=== PATIENT | male | born 1965 | race Caucasian/White ===

== ENCOUNTER 2025-06-17 12:42 | Outpatient (AMB) | payer OTHER, SELFPAY ==
--- NOTE | 2025-06-17 12:44 | MHC.OFFVIS ---
Intake Visit Reasons: F/U PD Allergies No Known Allergies Allergy (Verified 06/13/25 11:04) HPI Comments Details: 59 years old man with chronic depression with exposure to antipsychotic medicines and parkinsonism. He was doing okay. Mood was flexor. Sleep was okay. No significant change in his gait or any new symptom or tremor. [facility] Medical History (Updated 06/17/25 @ 12:46 by Jean Culver MD) Encephalopathy Hypertension Insomnia Parkinsonism Depression Review of Systems Const Details: Constitutional:?No fever, chills, fatigue, weight loss, or night sweats. HEENT:?No headache, vision changes, hearing loss, nasal congestion, sore throat. Neurological:?No dizziness, syncope, seizures, numbness, tingling, weakness, tremors, memory loss. Psychiatric:? Flat mood. Endocrine:?No heat/cold intolerance, polydipsia, polyuria, or hair/skin changes. Hematologic/Lymphatic:?No easy bruising, bleeding, or lymphadenopathy. Integumentary (Skin):?No rash, lesions, itching, or color changes. ? Physical Exam Neuro Other: Mental Status: Alert and oriented to person, place, and time. Normal attention. Normal spontaneous speech, fluency, and comprehension. Cranial Nerves: CN II: Visual bundy full to confrontation, visual acuity intact. CN III, IV, : Pupils equal, round, reactive to light and accommodation. Extraocular movements are normal. CN V: Facial sensation is normal. CN VII: Facial movements symmetrical. CN VIII: Hearing intact to bedside conversation is normal. CN IX, X: Palate elevates symmetrically. CN XI: Shoulder shrug and head turn symmetrical. CN XII: Tongue midline without atrophy or fasciculations. Extrapyramidal: Full facial expressions and blinking. No rigidity. Movements are appropriate with no tremor or abnormality. Speech: Normal; no dysarthria or tremor. Assessment & Plan Assessment & Plan (1) Parkinsonism: Code(s): G20.C - Parkinsonism, unspecified Category: Medical Qualifiers: Parkinsonism type: secondary Parkinsonism Secondary Parkinsonism type: neuroleptic-induced Qualified Code(s): G21.11 - Neuroleptic induced parkinsonism; T43.505A - Adverse effect of unspecified antipsychotics and neuroleptics, initial encounter Plan Impression: Mild parkinsonism with a exposure to neuroleptic type of medicines related to depression Recommendations: Benztropine 0.5 mg a day has been working well and was continued. Medications: New benztropine 0.5 mg PO DAILY 90 tabs 1RF Coding Level of Care Code Est Pt Level 4 (24854) Diagnoses Neuroleptic-induced parkinsonism G21.11; T43.505A Parkinsonism type: secondary Parkinsonism Secondary Parkinsonism type: neuroleptic-induced
--- OUTSIDE RECORDS SUMMARY | 2025-06-17 15:20 | XMS_ITS | Clinical Summary ---
Author Organization [address] [facility] Address [address] [place] [address] Phone Care Team Providers Care Gas Transfer Operator Name Role Phone Johann Oliver MD Primary Care Provider [phone] Allergies Active Allergy Reactions Criticality Noted Date Comments Bee Venom Protein (Honey Bee) Swelling Medium 2011 Medications ARIPiprazole (ABILIFY) 15 mg tablet Take 15 mg by mouth daily. 0 Active benztropine (COGENTIN) 0.5 mg tablet TAKE 1 TABLET BY MOUTH ONCE DAILY FOR 90 DAYS 2 Active lamoTRIgine (LaMICtal) 200 mg tablet TAKE 1 TABLET BY MOUTH ONCE DAILY WITH 225 MG TABLET FOR A TOTAL DAILY DOSE OF 250 MG 3 Active LORazepam (ATIVAN) 0.5 mg tablet as needed. 0 Active melatonin 3 mg tablet TAKE 1 TO 3 TABLETS BY MOUTH AT BEDTIME 3 Active sertraline (ZOLOFT) 100 mg tablet Take 100 mg by mouth daily. 0 Active traZODone (DESYREL) 150 mg tablet TAKE 1 TO 2 TABLETS BY MOUTH ONCE DAILY AT NIGHT 3 Active lamoTRIgine (LaMICtal) 25 mg tablet Take 1 tablet (25 mg total) by mouth 1 (one) time each day. With 200MG for total daily dose of 225 MG 4 Active levothyroxine (SYNTHROID, LEVOTHROID) 175 mcg tabletIndications: Postprocedural hypothyroidism Take 1 tablet by mouth once daily 30 tablet 5 5 Active amLODIPine (NORVASC) 10 mg tablet Take 1 tablet by mouth once daily 90 tablet 1 5 Active carvediloL (COREG) 12.5 mg tablet TAKE 1 TABLET BY MOUTH TWICE DAILY WITH MEALS 180 tablet 5 Active diclofenac (VOLTAREN) 1 % topical gel Apply 2 g topically 4 (four) times a day. 30 g 1 5 Active Active Problems Problem Noted Date Diagnosed Date HTN (hypertension) 07/10/2024 Overview (07/10/2024): Last Assessment & Plan: Patient's blood pressure is markedly elevated. This may be what caused the ST segment changes in recovery on his stress test. We will add amlodipine 2.5 mg a day to his carvedilol. Patient's been warned about lightheadedness and dizziness. May need additional adjustments to his therapy by his primary care physicians if his pressure remains elevated. Parkinson's disease with dys kinesia ([facility] V24, [facility] V28) 07/05/2024 Postoperative hypothyroidism 11/16/2022 Papillary thyroid carcinoma ([facility] V24, [facility]/ [facility] V28) 07/21/2022 Chest pain 09/11/2020 Overview (07/10/2024): Last Assessment & Plan: Patient with a somewhat atypical chest discomfort. Does have risk factors for coronary disease. We will send her for stress echocardiogram. Again I suspect the ST changes are secondary to hypertension. But he does have 3 out of 5 risk factors with hypertension hyperlipidemia and a family history of premature coronary disease. CKD (chronic kidney disease) stage 3, GFR 30-59 ml/min ([facility] V24, [facility] V28) 07/19/2020 Anxiety 07/17/2020 Major depression 11/20/2014 Overview (07/10/2024): Severe per his report Bilateral renal cysts 10/21/2013 Renal stone 10/21/2013 Diverticulosis 10/21/2013 Erectile dysfunction 09/05/2012 Overweight (BMI 25.0-29.9) 09/05/2012 Hyperlipidemia 08/08/2012 Encounters Date Type Department Care Team Description 06/05/2025 9:30 AM EDT Office Visit Adult Medicine [address] [phone] Johann Oliver MD Primary hypertension (Primary Dx); High cholesterol; Need for prophylactic vaccination and inoculation against influenza; Postoperative hypothyroidism; Papillary thyroid carcinoma ([facility] V24, [facility] V28); Parkinson's disease with dyskinesia, unspecified whether manifestations fluctuate (CMS/HCC V24, CMS/HCC V28); Pain in both feet 03/20/2025 10:28 AM EDT - 03/20/2025 11:59 PM EDT Hospital Encounter Radiology Department - [address] [phone] Cervical radiculopathy Discharge Disposition: Home or Self Care from Last 3 Months Immunizations Immunization Administration Dates Next Due Influenza Quadravalent, MDCK , 0.5ml, preservative free (Flucelvax) 6mo and older 05/18/2021 Influenza trivalent, 0.5mL, preservative free (Fluarix; FluLaval; Fluzone) ages 6mo and older (Afluria) 3 years and older 09/07/2022,06/27/2018,06/11/2016,2014,05/08/2013,09/05/2012 Influenza trivalent, MDCK, 0 .5mL, preservative free (Flucelvax) 6mo and older 06/05/2025 Tdap Tetanus diptheria acell ular pertussis (Boostrix; Adacel) 7yo and older 12/16/2016,09/05/2012 Surgical History Surgery Date Site/Laterality Comments CHOLECYSTECTOMY -2014 PROCEDURE: HISTORICAL CHOLECYSTECTOMY Medical History Medical History Date Comments HTN (hypertension) DX:HTN (hyper tension) Blurry vision, right eye DX:Blur ry vision, right eye Bilateral renal cysts 09/04/2013 DX:Bilater al renal cysts; COMMENT: benign appearing via CT 2013 Suicidal ideation 05/05/2014 DX:Suicidal id eation; COMMENT: adm into [facility] Anxiety DX:Anxiety Depression DX:Depression Major depression 11/20/2014 DX:Major depres yonny Papillary thyroid carcinoma (CMS/HCC V24, CMS/HCC V28) DX:Papillary thyroid carcino ma (HCC) Family History Medical History Relation Name Comments Depression Brother 1 Other: tobacco Brother 2 No Known Problems Daughter 1 No Known Problems Daughter 2 No Known Problems Daughter 3 No Known Problems Daughter 4 Other: s/p PPM Father Prostate cancer Father Stroke Father Other cancer Mother unsure of type Heart attack Paternal Grandfather Stroke Paternal Grandfather Breast cancer Paternal Grandmother Other cancer Paternal Grandmother bone Parkinson's Disease Paternal Grandmother Relation Name Status Comments Brother 1 Alive Brother 2 Alive Daughter 1 Alive Daughter 2 Alive Daughter 3 Alive Daughter 4 Alive Father Alive CVA age 60s, pr ostate cancer Maternal Grandfather Maternal Grandmother Mother cancer-type unk nown Paternal Grandfather [place]/CVA Paternal Grandmother Social History Tobacco Use Types Packs/Day Years Used Date Smoking Tobacco: Never Smokeless Tobacco: Never Alcohol Use Standard Drinks/Week Comments Not Asked 0 (1 standard drink = 0.6 oz pur e alcohol) Housing Instability Answer Date Recorde d Are you worried that in the next 2 months you may not have stable housing? No 11/20/2024 Food Access & Nutrition Answer Date Rec orded Do you have access to a vari ety of food including fruits and vegetables? Yes 11/20/2024 Health Literacy Answer Date Recorded How often do you need to hav e someone help you when you read instructions, pamphlets, or other written material from your doctor or pharmacy? Never 11/20/2024 Caregiver: How often do you need to have someone help you when you read instructions, pamphlets, or other written material from your doctor or pharmacy? Not on file 11/20/2024 Financial Risk Answer Date Recorded How hard is it for you to pa y for the very basics like food, housing, medical care, and air conditioning / heating? Not very hard 11/20/2024 Transportation Answer Date Recorded Has the lack of transportati on kept you from meetings, work, or from getting things needed for daily living? No Has the lack of transportati on kept you from medical appointments or from getting medications? No 11/20/2024 Social Isolation Answer Date Recorded How often do you feel lonely or isolated from th ose around you? Never 11/20/2024 Food Risk Answer Date Recorded Within the past 12 months we worried whether our food would run out before we got money to buy more. Never true 11/20/2024 Within the past 12 months th e food we bought just didn't last and we didn't have money to get more. Never true 11/20/2024 Dependent Care Answer Date Recorded Do you need help finding or paying for care for your loved ones. For example, early childhood specialist or elderly care for an older adult? No 11/20/2024 Education Answer Date Recorded Do you think completing more education or training, like finishing a GED, going to college, or learning a trade, would be helpful for you? No 11/20/2024 Employment and Income Answer Date Recor ded During the last four weeks, have you been actively looking for work? No 11/20/2024 Living Situation Answer Date Recorded What is your living situation? Unrecognized valu e 11/20/2024 Sex and Gender Information Value Date Recorded Sex Assigned at Not on file Legal Sex Male 9:52 AM EST Gender Identity Not on file Sexual Orientation Not on file Obstetrics History Last Filed Vital Signs Vital Sign Reading Time Taken Comments Blood Pressure 124/74 06/05/2025 9:14 AM EDT Pulse 72 06/05/2025 9:14 AM EDT Temperature 36.6 C (97.8 F) 06/05/2025 9:14 AM EDT Respiratory Rate 16 06/05/2025 9:14 AM EDT Oxygen Saturation 97% 06/05/2025 9:14 AM EDT Inhaled Oxygen Concentration - - Weight 81.2 kg (179 lb) 06/05/2025 9:14 AM EDT Height 167.6 cm (5' 6 ) 06/05/2025 9:14 AM EDT Body Mass Index 28.89 06/05/2025 9:14 AM EDT Plan of Treatment Upcoming Encounters Date Type Department Care Team (Late st Contact Info) Description 08/14/2025 11:00 AM EST Office Visit Endocrinology - [address] [phone] Valerie Dee MD [address] [place] [phone] 12/26/2025 9:30 AM EDT Office Visit Adult Medicine [facility] [address] [place] [address] Johann Oliver MD [address] [place] [address] Health Maintenance Due Date Last Done Comments Colorectal Cancer Screening: Colonoscopy 1967 Hepatitis B Vaccines (1 of 3 - 19+ 3-dose series) 1986 Pneumococcal Vaccine: 50+ Years (1 of 2 - PCV) 1986 Zoster Vaccines (1 of 2) 1986 COVID-19 Vaccine (3 - Moderna risk series) 01/28/2021 12/31/2020, 12/02/2020 HIV Screening 08/02/2022 Medicare Annual Wellness Visit 08/02/2022 Social Influencers of Health Screening 11/20/2025 11/20/2024 Hypertension/CHF/CAD Annual BMP Blood Test 03/02/2026 03/02/2025, 11/22/2024, 10/19/2023 DTaP,Tdap,and Td Vaccines (3 - Td or Tdap) 12/16/2026 12/16/2016, 09/05/2012 Cholesterol Screening (Lipid Panel) 11/22/2029 11/22/2024, 10/19/2023 RSV Immunization Adult Patients (1 - 1-dose 75+ series) 2042 Hepatitis C Screening Completed 11/16/2022 Depression Screening Completed 06/04/2025 Influenza Vaccine Discontinued 06/05/2025, , 05/18/2021, Additional history exists HIB Vaccines Aged Out No longer eligi ble based on patient's age to complete this topic HPV Vaccines Aged Out No longer eligi ble based on patient's age to complete this topic Hepatitis A Vaccines Aged Out No long er eligible based on patient's age to complete this topic IPV Vaccines Aged Out No longer eligi ble based on patient's age to complete this topic MMR Vaccines Aged Out No longer eligi ble based on patient's age to complete this topic Meningococcal ACWY Vaccine Aged Out N o longer eligible based on patient's age to complete this topic Meningococcal B Vaccine Aged Out No l onger eligible based on patient's age to complete this topic RSV Immunization Patients Under 20 months Aged Out No longer eligible based on patient's age to complete this topic Varicella Vaccines Aged Out No longer eligible based on patient's age to complete this topic Procedures Procedure Name Priority Date/Time Associated Diagnosis Comments MR CERVICAL SPINE WO CONTRAST Routine 03/20/2025 11:28 AM EDT Cervical radiculopathy COMPREHENSIVE METABOLIC PANEL STAT 03/02/2025 11:06 PM EDT LIPID PANEL WITH REFLEX TO DIRECT LDL Routine 11/22/2024 10:24 AM EDT Pure hypercholesterolemia HM HEPATITIS C SCREENING Routine 11/16/2022 from Last 3 Months or Most Recently Relevant to Health Maintenance Results * MR Cervical Spine wo Contrast (03/20/2025 11:28 AM EDT) Anatomical Region Laterality Modality C-spine, Spine Magnetic Resonan ce 03/20/2025 6:34 PM EDT Narrative 03/20/2025 6:47 PM EDT MRI of the cervical spine without intravenous contrast. HISTORY: Neck pain. Examination was performed on 1.5 Jessica magnet without administration of intravenous contrast. No prior MRIs are available for comparison. Plain films obtained on 11/22/2024 was reviewed. Cerebellar tonsils are normally positioned. There is abnormal cervical curvature probably due to muscle spasm. At C2-3 level there is mild hypertrophy of the left facet joint. There is mild hypertrophy of the uncovertebral joints with mild narrowing of the right C3 neural foramen. At C3-4 level disc is decreased in height and T2 signal. There is disc/osteophyte complex as well as hypertrophic changes in the uncovertebral joints. There is stenosis of the lateral recesses and C4 neural foramina bilaterally. There is are effacement of the anterior subarachnoid space. There is no spinal cord compression. At C4-5 level disc is markedly decreased in height and T2 signal. There is bulging of the disc and marginal osteophytes obliterating the anterior subarachnoid space. There is compression of the anterior surface of the spinal cord. There is severe stenosis of the lateral recesses and C5 neural foramina. At C5-6 level disc is slightly decreased in height and decreased in T2 signal. There is disc osteophyte complex obliterating the anterior subarachnoid space and effacing the anterior surface of the spinal cord. There is are hypertrophy of the uncovertebral joints contributing to severe stenosis of the C6 neural foramina. At C6-7 level there is diffuse bulging of the disc and mild hypertrophy of the uncovertebral joints. There is mild narrowing of the right C7 neural foramen. At C7-T1 level there is mild diffuse bulging of the disc. There are severe hypertrophic changes in the right facet joint. There is narrowing of the right lateral recess and the right C8 neural foramen. Perivertebral soft tissues appear to be unremarkable. Spinal cord was visualized without evidence of focal signal abnormalities. CONCLUSIONS: Multilevel bony and discs degenerative changes more prominent at C3-4 C4-5 and C5-6 levels. Compression of the anterior surface of the spinal cord at C4-5 level, effacement of the spinal cord at C5-6 level. Stenosis of the lateral recesses and neural foramina at multiple levels, involving right C3 neural foramen, bilateral C4, C5, bilateral C6, right C7 and C8 neural foramina. No focal signal abnormalities within the spinal cord. Please see details in the report. -------- FINAL REPORT -------- Dictated By: Lyric Grullon Dictated Date: 03/20/2025 18:34 ET Assigned Physician: Lyric Grullon Reviewed and Electronically Signed By: Lyric Grullon Signed Date: 03/20/2025 18:47 ET Workstation ID: [id number] Transcribed By: Self Edit Transcribed Date: 03/20/2025 18:34 ET Procedure Note Lyric Grullon MD - 03/20/2025 MRI of the cervical spine without intravenous contrast. HISTORY: Neck pain. Examination was performed on 1.5 Jessica magnet without administration ofintravenous contrast. No prior MRIs are available for comparison. Plainfilms obtained on 11/22/2024 was reviewed. Cerebellar tonsils are normallypositioned. There is abnormal cervical curvature probably due to musclespasm. At C2-3 level there is mild hypertrophy of the left facet joint. There ismild hypertrophy of the uncovertebral joints with mild narrowing of theright C3 neural foramen. At C3-4 level disc is decreased in height and T2 signal. There isdisc/osteophyte complex as well as hypertrophic changes in theuncovertebral joints. There is stenosis of the lateral recesses and N2bvergf foramina bilaterally. There is are effacement of the anteriorsubarachnoid space. There is no spinal cord compression. At C4-5 level disc is markedly decreased in height and T2 signal. There isbulging of the disc and marginal osteophytes obliterating the anteriorsubarachnoid space. There is compression of the anterior surface of thespinal cord. There is severe stenosis of the lateral recesses and [id number] foramina. At C5-6 level disc is slightly decreased in height and decreased in [id number]. There is disc osteophyte complex obliterating the anteriorsubarachnoid space and effacing the anterior surface of the spinal cord.There is are hypertrophy of the uncovertebral joints contributing tosevere stenosis of the C6 neural foramina. At C6-7 level there is diffuse bulging of the disc and mild hypertrophy ofthe uncovertebral joints. There is mild narrowing of the right C7 neuralforamen. At C7-T1 level there is mild diffuse bulging of the disc. There are severehypertrophic changes in the right facet joint. There is narrowing of theright lateral recess and the right C8 neural foramen. Perivertebral soft tissues appear to be unremarkable. Spinal cord was visualized without evidence of focal signalabnormalities. CONCLUSIONS: Multilevel bony and discs degenerative changes more prominentat C3- 4 C4-5 and C5-6 levels. Compression of the anterior surface of thespinal cord at C4-5 level, effacement of the spinal cord at C5-6 level.Stenosis of the lateral recesses and neural foramina at multiple levels,involving right C3 neural foramen, bilateral C4, C5, bilateral C6, rightC7 and C8 neural foramina. No focal signal abnormalities within the spinalcord. Please see details in the report. -------- FINAL REPORT -------- Dictated By: Lyric Grullon Dictated Date: 03/20/2025 18:34 ET Assigned Physician: Lyric Grullon Reviewed and Electronically Signed By: Lyric Grullon Signed Date: 03/20/2025 18:47 ET Workstation ID: [id number] Transcribed By: Self Edit Transcribed Date: 03/20/2025 18:34 ET Rahat SANDOVAL IMDelio MRI PROCEDURES Final Resul t * (ABNORMAL) Comprehensive metabolic panel (03/02/2025 11:06 PM EDT) Sodium 141 133 - 145 mmol/L LAB CHEMISTRY METHOD 03/03/2025 12:01 AM [facility] Potassium 3.5 3.5 - 5.5 mmol/L LAB CHEMISTRY METHOD 03/03/2025 12:01 AM [facility] Chloride 110 96 - 110 mmol/L LAB CHEMISTRY METHOD 03/03/2025 12:01 AM [facility] CO2 25 21 - 32 mmol/L LAB CHEMISTRY METHOD 03/03/2025 12:01 AM [facility] Anion Gap 6 3 - 11 LAB CHEMISTRY METHOD 03/03/2025 12:01 AM [facility] Glucose 109(H) 70 - 100 mg/dL LAB CHEMISTRY METHOD 03/03/2025 12:01 AM [facility] BUN 22 5 - 25 mg/dL LAB CHEMISTRY METHOD 03/03/2025 12:01 AM [facility] Creatinine 1.36(H) 0.70 - 1.30 mg/dL LAB CHEMISTRY METHOD 03/03/2025 12:01 AM [facility] eGFR 61 >=60 mL/min/1. 73m2 LAB CHEMISTRY METHOD 03/03/2025 12:01 AM [facility] Comment:Calculation based on the Chronic Kidney Disease Epidemiology Collaboration (CKD-EPI) equation refit without adjustment for race. BUN/Creatinine Ratio 16.2 LAB CHEMISTRY METHOD 03/03/2025 12:01 AM [facility] Calcium 8.6 8.5 - 10.5 mg/dL LAB CHEMISTRY METHOD 03/03/2025 12:01 AM [facility] AST (SGOT) 13 10 - 42 unit/L LAB CHEMISTRY METHOD 03/03/2025 12:01 AM [facility] ALT (SGPT) 17 10 - 60 unit/L LAB CHEMISTRY METHOD 03/03/2025 12:01 AM [facility] Alkaline Phosphatase 87 42 - 121 unit/L LAB CHEMISTRY METHOD 03/03/2025 12:01 AM [facility] Total Protein 6.9 6.0 - 8.0 g/dL LAB CHEMISTRY METHOD 03/03/2025 12:01 AM [facility] Albumin 3.9 3.2 - 5.0 g/dL LAB CHEMISTRY METHOD 03/03/2025 12:01 AM [facility] Total Bilirubin 0.3 0.0 - 1.4 mg/dL LAB CHEMISTRY METHOD 03/03/2025 12:01 AM [facility] Blood Venous blood specimen / Unknown Venipuncture / Unknown 03/02/2025 11:06 PM EDT 03/02/2025 11:12 PM EDT us Seth Héctor Bhatt DO LAB BLOOD ORDERABLES Marie l Result [facility] [address] [place] [address], * (ABNORMAL) Lipid panel with reflex to direct LDL (11/22/2024 10:24 AM EDT) Cholesterol 174 0 - 200 mg/dL LAB CHEMISTRY METHOD 11/22/2024 3:11 PM [facility] Triglycerides 179(H) 0 - 150 mg/dL LAB CHEMISTRY METHOD 11/22/2024 3:11 PM [facility] HDL 33(L) >=40 mg/dL LAB CHEMISTRY METHOD 11/22/2024 3:11 PM EDT [facility] LDL Calculated 105(H) 0 - 100 mg/dL LAB CHEMISTRY METHOD 11/22/2024 3:11 PM EDT [facility] VLDL Cholesterol Donaldo 35.8 mg/dL LAB CHEMISTRY METHOD 11/22/2024 3:11 PM EDT [facility] Non HDL Chol. (LDL+VLDL) 141 <145 mg/dL LAB CHEMISTRY METHOD 11/22/2024 3:11 PM EDT [facility] Chol/HDL Ratio 5.3(H) 0.0 - 4.4 LAB CHEMISTRY METHOD 11/22/2024 3:11 PM EDT [facility] Blood Venous blood specimen / Unknown Venipuncture / Unknown 11/22/2024 10:24 AM EDT 11/22/2024 10:24 AM EDT Johann Oliver MD LAB BLOOD ORDERABLES Final Resu lt [facility] [address] [place] [address], * Hepatitis C Screening (11/16/2022) [facility] Hepatitis C Screening Abstracted Historical Provider HEALTH MAINTENANCE Final Result from Last 3 Months or Most Recently Relevant to Health Maintenance Insurance [facility] Member Subscriber Plan / Payer (Ef fective 2016-Present) Name:TL STARK Relation to Subscriber:Self Name:Tl Stark Payer ID:[id number] Group ID:[id number] Type:Not on file Address: [facility] [address] [id number] Care Teams Gas Transfer Operator Relationship Specialty Start Date End Date Johann Oliver MD [address] [place] [phone] PCP - General Internal Medicine 07/19/24
--- OUTSIDE RECORDS SUMMARY | 2025-06-17 15:20 | XMS_ITS | Clinical Summary ---
Author Organization [facility] Address [address] [place] [address] Care Team Providers Care Channel Machine Operator Name Role Phone Nia Azevedo NP Primary Care Provider [phone] Allergies No known active allergies Medications Fleming Carbonate 300 MG Cap 1 CAPSULE 3 TIMES DAILY Active Lamotrigine (LAMICTAL) 150 MG Tab 1 TABLET TWICE DAILY Active Pravastatin Sodium 20 MG Tab 1 TABLET AT BEDTIME Active CloNIDine HCl 0.1 MG Tab 1 TABLET TWICE DAILY Active Metoprolol Succinate 25 MG TABLET SR 24 HR 1 TABLET DAILY Active Risperidone (RISPERDAL) 1 MG Tab 1 TABLET DAILY Active TraZODone HCl 150 MG Tab 1 TABLET 3 TIMES DAILY Active Allopurinol 100 MG Tab 1 TABLET DAILY Active BuPROPion HCl (WELLBUTRIN SR) 150 MG TABLET SR 12 HR 1 CAPSULE 3 TIMES DAILY Active Social History Tobacco Use Types Packs/Day Years Used Date Smoking Tobacco: Never Sex and Gender Information Value Date Recorded Sex Assigned at Not on file Legal Sex Male 2:03 PM EDT Gender Identity Not on file Sexual Orientation Not on file Last Filed Vital Signs Vital Sign Reading Time Taken Comments Blood Pressure 126/79 02/07/2017 2:19 PM EDT Pulse 67 02/07/2017 2:19 PM EDT Temperature 36.6 C (97.8 F) 02/07/2017 2:19 PM EDT Respiratory Rate 16 02/07/2017 2:19 PM EDT Oxygen Saturation 97% 02/07/2017 2:19 PM EDT Inhaled Oxygen Concentration - - Weight - - Height - - Body Mass Index - - Plan of Treatment Health Maintenance Due Date Last Done Comments Hepatitis C Screening 1965 DTaP/Tdap/Td (1 - Tdap) 1985 Hep B (1 of 3 - 19+ 3-dose series) 1986 Pneumococcal 50+ years (1 of 1 - PCV) 2017 Zoster (Shingrix) (1 of 2) 2017 COVID-19 Vaccine ( - 2024-2 6 season) 2025 Influenza (#1) 2025 HPV Vaccine (No Doses Required) Completed Hep A Aged Out No longer eligi ble based on patient's age to complete this topic Hib Aged Out No longer eligi ble based on patient's age to complete this topic Meningococcal ACWY Aged Out No longer eligible based on patient's age to complete this topic Insurance * Guarantor: [employer] Account Type Relation to Patient Date of Phone Billing Address Personal/Family [address] [place], [place] [address] [employer] Care Teams Channel Machine Operator Relationship Specialty Start Date End Date Nia Azevedo NP [id number] [place] [address] PCP - General Nurse Practitioner 02/07/17
--- OUTSIDE RECORDS SUMMARY | 2025-06-17 15:20 | XMS_ITS | Clinical Summary ---
Author Organization [facility] Address [address] [place] [address] Care Team Providers Care Mediation Commissioner Name Role Phone Nia Azevedo GATITO Primary Care Provider [phone] Source Comments PLEASE NOTE, if this patient is a minor, it may be UNLAWFUL to discuss sensitive information that is contained in these records (such as FAMILY PLANNING, MENTAL HEALTH or SUBSTANCE ABUSE) with the minor patient's parent or other person without the patient's specific authorization.[facility] Allergies Active Allergy Reactions Criticality Noted Date Comments Bee Sting Anaphylaxis 08/04/2015 Needs epi pen. Medications lithium 300 mg tablet 5 Active traZODone (DESYREL) 150 mg tablet 5 Active lamoTRIgine (LAMICTAL) 150 mg tablet 6 Active naphazoline (NAPHCON) 0.1 % ophthalmic solutionIndicatio ns:Allergic conjunctivitis, bilateral Place 1 Drop into both eyes 4 (four) times daily as needed for red or irritated eye 15 mL 0 7 Active allopurinol (ZYLOPRIM) 100 mg tabletIndications :Hx of gout Take 1 Tab by mouth once daily 30 Tab 3 8 Active pravastatin (PRAVACHOL) 20 mg tabletIndications :Dyslipidemia Take 1 Tab by mouth once daily 30 Tab 5 8 Active ARIPiprazole (ABILIFY) 5 mg tabletIndications :Anxiety and depression 8 Active buPROPion HCl (WELLBUTRIN SR) 200 mg 12 hr tabletIndications :Anxiety and depression 8 Active risperiDONE (RISPERDAL) 1 mg tabletIndications :Anxiety and depression 8 Active carvedilol (COREG) 12.5 mg tabletIndications :Essential hypertension Take 1 Tab by mouth 2 (two) times daily with a meal 60 Tab 3 8 Active Active Problems Problem Noted Date Diagnosed Date Essential hypertension 04/05/2016 Immunizations Immunization Administration Dates Next Due TDAP 12/16/2016 Family History Medical History Relation Name Comments Heart Problems Father 74 Stroke Father 74 Cancer Mother 68 Kidney disease Mother 68 Relation Name Status Comments Father 74 Alive Mother 68 Social History Tobacco Use Types Packs/Day Years Used Date Smoking Tobacco: Never Smokeless Tobacco: Never Alcohol Use Standard Drinks/Week Comments No 0 (1 standard drink = 0.6 oz pur e alcohol) Social Connections Answer Date Recorded Social Connections and Isolation 0 04/28/2019 Financial Resource Strain Answer Date R ecorded Financial Resource Strain 0 2018 Stress Answer Date Recorded Stress 0 04/28/2019 Physical Activity Answer Date Recorded Physical Activity 0 04/28/2019 Food Insecurity Answer Date Recorded Food 0 04/28/2019 Transportation Needs Answer Date Record ed Transportation 0 04/28/2019 Housing Stability Answer Date Recorded Housing 0 04/28/2019 Safety and Environment Answer Date Arturo rded Safety 0 04/28/2019 Utilities Answer Date Recorded Utilities 0 04/28/2019 Employment Answer Date Recorded Employment 0 04/28/2019 Sex and Gender Information Value Date Recorded Sex Assigned at Male 11/29/2017 12:00 PM PDT Legal Sex Male 12:39 PM PDT Gender Identity Male 11/29/2017 12:00 PM PDT Sexual Orientation Straight 11/29/2017 12 :00 PM PDT Last Filed Vital Signs Vital Sign Reading Time Taken Comments Blood Pressure 127/89 01/23/2018 10:06 AM EDT Pulse 65 01/23/2018 10:06 AM EDT Temperature 36.4 C (97.6 F) 01/23/2018 10:06 AM EDT Respiratory Rate 16 01/23/2018 10:0 6 AM EDT Oxygen Saturation - - Inhaled Oxygen Concentration - - Weight 72.9 kg (160 lb 12.8 oz) 018 10:06 AM EDT Height 167.6 cm (5' 6 ) 07/05/2016 9:47 AM EDT Body Mass Index 25.95 07/05/2016 9:47 AM EDT Plan of Treatment Not on file Insurance [facility] [place] [id number] Care Teams Mediation Commissioner Relationship Specialty Start Date End Date Nia Azevedo FNP [address] [place] [address] PCP - General Family Medicine, RADIAL DRILL PRESS OPERATOR FOR PLASTIC 02/16/16
== END 2025-06-17 12:51 | disposition home or self-care (01) ==
LOC: HO.HSM 12:43
PROVIDERS: PCP Internal Medicine; Visit Provider Psychiatry & Neurology Neurology
DX: G21.11 Neuroleptic induced parkinsonism (principal); T43.505A Adverse effect of unspecified antipsychotics and neuroleptics, initial encounter
CPT/HCPCS: 99214

== ENCOUNTER → 2025-06-17 12:42 | Outpatient (BNVA) | payer OTHER, SELFPAY | PROVIDERS: PCP Internal Medicine; Visit Provider Psychiatry & Neurology Neurology | DX: G21.11 Neuroleptic induced parkinsonism (principal); T43.505A Adverse effect of unspecified antipsychotics and neuroleptics, initial encounter | CPT/HCPCS: 99212 ==